=== PATIENT | male | born 1960 | race Caucasian/White ===

== ENCOUNTER 2017-09-19 14:05 | Inpatient (IN) | payer OTHER ==
[2017-09-19 15:28] VITALS: BMI 22.3
--- NOTE | 2017-09-19 17:00 | HP ---
CIWA Score - CIWA Score Nausea/Vomitin-Mild Nausea/No Vomiting Muscle Tremors: 4-Moderate,w/Arms Extend Anxiety: 4-Mod. Anxious/Guarded Agitation: 3 Paroxysmal Sweats: 1-Minimal Palms Moist Orientation: 1-Uncertain about Date Tacttile Disturbances: 0-None Auditory Disturbances: 0-None Visual Disturbances: 0-None Headache: 0-None Present CIWA-Ar Total Score: 14 Admission ROS BHS - HPI Chief Complaint: withdrawal sx Allergies/Adverse Reactions: Allergies Allergy/AdvReac Type Severity Reaction Status Date / Time No Known Allergies Allergy Verified 09/19/17 16:44 History of Present Illness: 57 years old male with long history of alcohol nicotine dependence has hiv and dry skin is admitted to detox Exam Limitations: No Limitations - Ebola screening Have you traveled outside of the country in the last 21 days: No (N) Have you had contact with anyone from an Ebola affected area: No Have you been sick,other than usual withdrawal symptoms: No Do you have a fever: No - Review of Systems Constitutional: Loss of Appetite, Unintentional Wgt. Loss EENT: reports: No Symptoms Reported Respiratory: reports: No Symptoms reported Cardiac: reports: Irregular Heart Rate GI: reports: Nausea, Poor Appetite, Poor Fluid Intake, Abdominal cramping : reports: No Symptoms Reported Musculoskeletal: reports: Back Pain (since 2001) Integumentary: reports: No Symptoms Reported Neuro: reports: Tremors Endocrine: reports: No Symptoms Reported Hematology: reports: No Symptoms Reported Psychiatric: reports: Judgement Intact, Mood/Affect Appropiate Other Systems: Reviewed and Negative Patient History - Patient Medical History Hx Anemia: No Hx Asthma: No Hx Chronic Obstructive Pulmonary Disease (COPD): No Hx Cancer: No Hx Cardiac Disorders: No Hx Congestive Heart Failure: No Hx Hypertension: No Hx Hypercholesterolemia: No Hx Pacemaker: No HX Cerebrovascular Accident: No Hx Seizures: No Hx Dementia: No Hx Diabetes: No Hx Gastrointestinal Disorders: No Hx Liver Disease: No Hx Genitourinary Disorders: No Hx Sexually Transmitted Disorders: No Hx Renal Disease (ESRD): No Hx Thyroid Disease: No Hx Human Immunodeficiency Virus (HIV): Yes (2002 [id number], truvada, norvir , reyataz) Hx Hepatitis C: No Hx Depression: No Hx Suicide Attempt: No Hx Bipolar Disorder: No Hx Schizophrenia: No - Patient Surgical History Past Surgical History: No Hx Neurologic Surgery: No Hx Cataract Extraction: No Hx Cardiac Surgery: No Hx Lung Surgery: No Hx Breast Surgery: No Hx Breast Biopsy: No Hx Abdominal Surgery: No Hx Appendectomy: No Hx Cholecystectomy: No Hx Genitourinary Surgery: No Hx Orthopedic Surgery: No - PPD History Previous Implant?: Yes Documented Results: Negative w/o proof Implanted On Prior [facility] Admission?: Yes Date: 12/01/15 Results: 0 mm PPD to be Administered?: Yes - Smoking Cessation Smoking history: Current every day smoker Have you smoked in the past 12 months: Yes Aproximately how many cigarettes per day: 20 Cigars Per Day: 0 Hx Chewing Tobacco Use: No Initiated information on smoking cessation: Yes 'Breaking Loose' booklet given: 09/19/17 - Substance & Tx. History Hx Alcohol Use: Yes Hx Substance Use: Yes Substance Use Type: Alcohol, Marijuana Hx Substance Use Treatment: Yes (2015 [facility]) - Substances Abused Alcohol Route: Oral Frequency: Daily Amount used: 3 pints vodka Age of first use: 23 Date of Last Use: 09/18/17 Marijuana/Hashish Route: Smoking Frequency: 1-3 times last 30 days Amount used: 1 joint Age of first use: 23 Date of Last Use: 09/05/17 Family Disease History - Family Disease History Family Disease History: Heart Disease: Mother (), CA: Father (ALCOHOL, ), Respiratory: Father, Other: Father, Mother Admission Physical Exam S - Vital Signs Vital Signs: Vital Signs - 24 hr 09/19/17 15:25 Temperature 97.8 F Pulse Rate 50 L Respiratory 18 Rate Blood Pressure 142/80 - Physical General Appearance: Yes: Appropriately Dressed, Mild Distress, Thin, Tremorous, Irritable, Sweating, Anxious HEENTM: Yes: Hearing grossly Normal, Normal ENT Inspection, Normocephalic, Normal Voice Respiratory: Yes: Chest Non-Tender, Lungs Clear, Normal Breath Sounds, No Respiratory Distress, No Accessory Muscle Use Neck: Yes: Supple, Trachea in good position Breast: Yes: Breasts Symetrical Cardiology: Yes: S1, S2, Bradycardia, Irregularly Irregular Abdominal: Yes: Normal Bowel Sounds, Non Tender, Soft Genitourinary: Yes: Within Normal Limits Back: Yes: Normal Inspection Musculoskeletal: Yes: full range of Motion, Gait Steady, Back pain Extremities: Yes: Normal Inspection, Normal Range of Motion, Non-Tender, Tremors Neurological: Yes: Alert, Motor Strength 5/5, Normal Mood/Affect, Normal Response Integumentary: Yes: Warm Lymphatic: Yes: Within Normal Limits - Diagnostic (1) Dry skin Current Visit: Yes Status: Chronic (2) Alcohol dependence with uncomplicated withdrawal Current Visit: Yes Status: Acute (3) Low back pain Current Visit: Yes Status: Chronic Qualifiers: Chronicity: unspecified Back pain laterality: unspecified Sciatica presence: without sciatica Qualified Code(s): M54.5 - Low back pain (4) Nicotine dependence Current Visit: Yes Status: Acute Qualifiers: Nicotine product type: cigarettes Substance use status: in withdrawal Qualified Code(s): F17.213 - Nicotine dependence, cigarettes, with withdrawal (5) Weight loss Current Visit: Yes Status: Acute (6) Human immunodeficiency virus infection Current Visit: Yes Status: Chronic Cleared for Admission [facility] - Detox or Rehab [facility] Level of Care: Medically Managed Detox Regimen/Protocol: Librium [facility] Breath Alcohol Content Breath Alcohol Content: 0 Urine Drug Screen - Results Drug Screen Negative: No Urine Drug Screen Results: THC-Marijuana
[2017-09-19] MEDS ORDERED: P-EPHED 60MG/TRIPROLIDI 2.5MG TABLET PO PRN (17:03)
[2017-09-19] MEDS ORDERED: LOPERAMIDE HCL 2 MG CAPSULE PO PRN (17:03)
[2017-09-19] MEDS ORDERED: ACETAMINOPHEN 325 MG TABLET (FP) PO PRN (17:03)
[2017-09-19] MEDS ORDERED: MAG HYDROX/AL HYDROX/SIMETH 30 ML UNIT-DOSE CUP PO PRN (17:03)
[2017-09-19] MEDS ORDERED: guaiFENesin/D-METHORPHAN HB 10 ML UNIT-DOSE CUPS PO PRN (17:03)
[2017-09-19] MEDS ORDERED: chlordiazePOXIDE HCL 25 MG CAPSULE PO PRN (17:03)
[2017-09-19] MEDS ORDERED: MAGNESIUM CITRATE 300 ML BOTTLE PO PRN (17:03)
[2017-09-19] MEDS ORDERED: IBUPROFEN 400 MG TABLET (FP) PO PRN (17:03)
[2017-09-19] MEDS ORDERED: MENTHOL/PHENOL 1 EACH UD MM PRN (17:03)
[2017-09-19] MEDS ORDERED: NICOTINE POLACRILEX 4 MG GUM BUC PRN (17:03)
[2017-09-19] MEDS ORDERED: MAGNESIUM HYDROX 2400MG/30ML ORAL SUSPENSION 30 ML CUP PO PRN (17:03)
[2017-09-19] MEDS: THIAMINE HCL 100 MG TABLET (FP) PO SCH (22:12)
[2017-09-19] MEDS: [UNRECOGNIZED DRUG - OTHER] PO SCH (22:12)
[2017-09-19] MEDS: chlordiazePOXIDE HCL 25 MG CAPSULE PO SCH (22:12)
[2017-09-19] MEDS: MINERAL OIL/PETROLAT/WATER TOPICAL CREAM 113 GM JAR TP SCH (22:13)
[2017-09-19 23:08] LABS: URINE APPEARANCE CLEAR; URINE BILIRUBIN NEGATIVE (NEGATIVE); URINE BLOOD NEGATIVE (NEGATIVE); URINE COLOR YELLOW; URINE GLUCOSE (UA) NEGATIVE (NEGATIVE); URINE KETONE NEGATIVE (NEGATIVE); URINE NITRITE NEGATIVE (NEGATIVE); URINE PROTEIN NEGATIVE (NEGATIVE); URINE UROBILINOGEN NEGATIVE mg/dL (0.2-1.0)
[2017-09-20] MEDS: chlordiazePOXIDE HCL 25 MG CAPSULE PO SCH ×4 (05:40→22:04)
[2017-09-20] MEDS: NICOTINE 21 MG/24 HOURS TOPICAL PATCH TD SCH (10:08)
[2017-09-20] MEDS: PRENATAL VITAMINS W/ FOLIC ACID TABLET (FP) PO SCH (10:08)
[2017-09-20 10:17] LABS: MCH 32.9 pg (25.7-33.7); MEAN CELL VOLUME 99.6 fl (80-96); MEAN PLT VOLUME 8.9 fl (7.5-11.1); PLATELET COUNT 189 K/MM3 (134-434); RDW 12.7 % (11.9-15.9); WHITE BLOOD COUNT 3.2 K/mm3 (4.0-10.0)
[2017-09-20 11:15] LABS: ALBUMIN 3.5 g/dl (3.4-5.0); ANION GAP 5 (8-16); CALCIUM 8.4 mg/dL (8.5-10.1); CO2 30 mmol/L (21-32); GLUCOSE,RANDOM 112 mg/dL (74-106); SGOT/AST 17 U/L (15-37); SGPT/ALT 30 U/L (12-78)
[2017-09-20 11:17] LABS: ALK PHOS 46 U/L (45-117); BILIRUBIN,TOTAL 0.3 mg/dL (0.2-1.0); CREATININE 0.9 mg/dL (0.7-1.3); TOT PROT 6.6 g/dl (6.4-8.2)
[2017-09-20 14:37] LABS: URINE LEUK ESTERASE Negative (NEGATIVE)
--- NOTE | 2017-09-20 16:07 | PN ---
[facility] CIWA - CIWA Score Nausea/Vomitin-No Nausea/No Vomiting Muscle Tremors: 3 Anxiety: 4-Mod. Anxious/Guarded Agitation: 2 Paroxysmal Sweats: 3 Orientation: 0-Oriented Tacttile Disturbances: 0-None Auditory Disturbances: 1-Very Mild Visual Disturbances: 2-Mild Sensitivity Headache: 0-None Present CIWA-Ar Total Score: 15 S Progress Note (SOAP) Subjective: Anxious, Fatigue, Tremors, Sweating. Objective: PT. A & O X 3, OBSERVED AMBULATING ON UNIT. NO ACUTE DISTRESS. 09/20/17 16:05 Vital Signs Temperature 98.2 F 09/20/17 13:09 Pulse Rate 76 09/20/17 13:09 Respiratory Rate 18 09/20/17 13:09 Blood Pressure 113/66 09/20/17 13:09 O2 Sat by Pulse Oximetry (%) Laboratory Tests 09/19/17 09/20/17 09/20/17 22:50 07:40 07:40 WBC 3.2 L RBC 3.89 L Hgb 12.8 Hct 38.7 MCV 99.6 H MCH 32.9 MCHC 33.0 RDW 12.7 Plt Count 189 MPV 8.9 Sodium 141 Potassium 4.6 Chloride 106 Carbon Dioxide 30 Anion Gap 5 L BUN 12 Creatinine 0.9 Creat Clearance w eGFR > 60 Random Glucose 112 H Calcium 8.4 L Total Bilirubin 0.3 D AST 17 D ALT 30 Alkaline Phosphatase 46 D Total Protein 6.6 Albumin 3.5 Urine Color Yellow Urine Appearance Clear Urine pH 6.0 Ur Specific [place] 1.024 Urine Protein Negative Urine Glucose (UA) Negative Urine Ketones Negative Urine Blood Negative Urine Nitrite Negative Urine Bilirubin Negative Urine Urobilinogen Negative Ur Leukocyte Esterase Negative RPR Titer 09/20/17 07:40 WBC RBC Hgb Hct MCV MCH MCHC RDW Plt Count MPV Sodium Potassium Chloride Carbon Dioxide Anion Gap BUN Creatinine Creat Clearance w eGFR Random Glucose Calcium Total Bilirubin AST ALT Alkaline Phosphatase Total Protein Albumin Urine Color Urine Appearance Urine pH Ur Specific [place] Urine Protein Urine Glucose (UA) Urine Ketones Urine Blood Urine Nitrite Urine Bilirubin Urine Urobilinogen Ur Leukocyte Esterase RPR Titer Nonreactive LABS NOTED. PATIENT HAS HAD LOW WBC COUNT VALUES ON SEVERAL PREVIOUS ADMISSION. 09/20/17 16:06 Assessment: 09/20/17 16:05 WITHDRAWAL SYMPTOMS. LEUKOPENIA. 09/20/17 16:06 Plan: CONTINUE DETOX.
--- NOTE | 2017-09-20 16:32 | EKG ---
Test Reason : Blood Pressure : / mmHG Vent. Rate : 071 BPM Atrial Rate : 062 BPM P-R Int : 132 ms QRS Dur : 080 ms QT Int : 388 ms P-R-T Axes : 059 076 064 degrees QTc Int : 421 ms SINUS RHYTHM WITH PREMATURE SUPRAVENTRICULAR COMPLEXES VOLTAGE CRITERIA FOR LEFT VENTRICULAR HYPERTROPHY ATRIAL ABNORMALITY ABNORMAL ECG NO PREVIOUS ECGS AVAILABLE REPEAT EKG IF CLINICALLY INDICATED Confirmed by TIESHA NAILS MD ([id number] on 09/20/2017 4:31:30 PM Referred By: Confirmed By:TIESHA NAILS MD
[2017-09-20] MEDS: THIAMINE HCL 100 MG TABLET (FP) PO SCH (22:03)
[2017-09-20] MEDS: [UNRECOGNIZED DRUG - OTHER] PO SCH (22:04)
[2017-09-20] MEDS: MINERAL OIL/PETROLAT/WATER TOPICAL CREAM 113 GM JAR TP SCH (22:05)
[2017-09-21] MEDS: chlordiazePOXIDE HCL 25 MG CAPSULE PO SCH ×3 (05:47→16:55)
[2017-09-21] MEDS: PRENATAL VITAMINS W/ FOLIC ACID TABLET (FP) PO SCH (10:03)
[2017-09-21] MEDS: NICOTINE 21 MG/24 HOURS TOPICAL PATCH TD SCH (10:03)
--- NOTE | 2017-09-21 13:35 | PN ---
S CIWA - CIWA Score Nausea/Vomitin Muscle Tremors: 3 Anxiety: 3 Agitation: 2 Paroxysmal Sweats: 3 Orientation: 0-Oriented Tacttile Disturbances: 1-Very Mild Itch/Numbness Auditory Disturbances: 0-None Visual Disturbances: 0-None Headache: 1-Very Mild CIWA-Ar Total Score: 16 [facility] Progress Note (SOAP) Subjective: Anxious, interrupted sleep, sweating Objective: 09/21/17 13:43 Last Vital Signs Temp Pulse Resp BP Pulse Ox 98.5 F 79 18 107/71 09/21/17 13:42 09/21/17 13:42 09/21/17 13:42 09/21/17 13:42 Laboratory Tests 09/19/17 09/20/17 09/20/17 22:50 07:40 07:40 WBC 3.2 L RBC 3.89 L Hgb 12.8 Hct 38.7 MCV 99.6 H MCH 32.9 MCHC 33.0 RDW 12.7 Plt Count 189 MPV 8.9 Sodium 141 Potassium 4.6 Chloride 106 Carbon Dioxide 30 Anion Gap 5 L BUN 12 Creatinine 0.9 Creat Clearance w eGFR > 60 Random Glucose 112 H Calcium 8.4 L Total Bilirubin 0.3 D AST 17 D ALT 30 Alkaline Phosphatase 46 D Total Protein 6.6 Albumin 3.5 Urine Color Yellow Urine Appearance Clear Urine pH 6.0 Ur Specific [place] 1.024 Urine Protein Negative Urine Glucose (UA) Negative Urine Ketones Negative Urine Blood Negative Urine Nitrite Negative Urine Bilirubin Negative Urine Urobilinogen Negative Ur Leukocyte Esterase Negative RPR Titer 09/20/17 07:40 WBC RBC Hgb Hct MCV MCH MCHC RDW Plt Count MPV Sodium Potassium Chloride Carbon Dioxide Anion Gap BUN Creatinine Creat Clearance w eGFR Random Glucose Calcium Total Bilirubin AST ALT Alkaline Phosphatase Total Protein Albumin Urine Color Urine Appearance Urine pH Ur Specific [place] Urine Protein Urine Glucose (UA) Urine Ketones Urine Blood Urine Nitrite Urine Bilirubin Urine Urobilinogen Ur Leukocyte Esterase RPR Titer Nonreactive Labs noted Assessment: 09/21/17 13:44 Withdrawal symptoms Plan: Continue detox
[2017-09-21] MEDS: chlordiazePOXIDE 5 MG CAPSULE PO SCH (22:03)
[2017-09-21] MEDS: THIAMINE HCL 100 MG TABLET (FP) PO SCH (22:03)
[2017-09-21] MEDS: MINERAL OIL/PETROLAT/WATER TOPICAL CREAM 113 GM JAR TP SCH (22:03)
[2017-09-21] MEDS: [UNRECOGNIZED DRUG - OTHER] PO SCH (22:04)
[2017-09-22] MEDS: chlordiazePOXIDE 5 MG CAPSULE PO SCH ×3 (05:18→17:02)
[2017-09-22] MEDS: NICOTINE 21 MG/24 HOURS TOPICAL PATCH TD SCH (10:01)
[2017-09-22] MEDS: PRENATAL VITAMINS W/ FOLIC ACID TABLET (FP) PO SCH (10:01)
--- NOTE | 2017-09-22 10:50 | PN ---
[facility] Progress Note (SOAP) Subjective: ANXIETY,SWEATS,INTERMITTENT SLEEP. Objective: 09/22/17 10:49 Vital Signs Temperature 97.5 F L 09/22/17 09:08 Pulse Rate 77 09/22/17 09:08 Respiratory Rate 18 09/22/17 09:08 Blood Pressure 127/80 09/22/17 09:08 O2 Sat by Pulse Oximetry (%) Laboratory Last Values WBC 3.2 K/mm3 (4.0-10.0) L 09/20/17 07:40 RBC 3.89 M/mm3 (4.00-5.60) L 09/20/17 07:40 Hgb 12.8 GM/dL (11.7-16.9) 09/20/17 07:40 Hct 38.7 % (35.4-49) 09/20/17 07:40 MCV 99.6 fl (80-96) H 09/20/17 07:40 MCH 32.9 pg (25.7-33.7) 09/20/17 07:40 MCHC 33.0 g/dl (32.0-35.9) 09/20/17 07:40 RDW 12.7 % (11.9-15.9) 09/20/17 07:40 Plt Count 189 K/MM3 (134-434) 09/20/17 07:40 MPV 8.9 fl (7.5-11.1) 09/20/17 07:40 Sodium 141 mmol/L (136-145) 09/20/17 07:40 Potassium 4.6 mmol/L (3.5-5.1) 09/20/17 07:40 Chloride 106 mmol/L (98-107) 09/20/17 07:40 Carbon Dioxide 30 mmol/L (21-32) 09/20/17 07:40 Anion Gap 5 (8-16) L 09/20/17 07:40 BUN 12 mg/dL (7-18) 09/20/17 07:40 Creatinine 0.9 mg/dL (0.7-1.3) 09/20/17 07:40 Creat Clearance w eGFR > 60 (>60) 09/20/17 07:40 Random Glucose 112 mg/dL (74-106) H 09/20/17 07:40 Calcium 8.4 mg/dL (8.5-10.1) L 09/20/17 07:40 Total Bilirubin 0.3 mg/dL (0.2-1.0) D 09/20/17 07:40 AST 17 U/L (15-37) D 09/20/17 07:40 ALT 30 U/L (12-78) 09/20/17 07:40 Alkaline Phosphatase 46 U/L (45-117) D 09/20/17 07:40 Total Protein 6.6 g/dl (6.4-8.2) 09/20/17 07:40 Albumin 3.5 g/dl (3.4-5.0) 09/20/17 07:40 Urine Color Yellow 09/19/17 22:50 Urine Appearance Clear 09/19/17 22:50 Urine pH 6.0 (5.0-8.0) 09/19/17 22:50 Ur Specific [place] 1.024 (1.001-1.035) 09/19/17 22:50 Urine Protein Negative (NEGATIVE) 09/19/17 22:50 Urine Glucose (UA) Negative (NEGATIVE) 09/19/17 22:50 Urine Ketones Negative (NEGATIVE) 09/19/17 22:50 Urine Blood Negative (NEGATIVE) 09/19/17 22:50 Urine Nitrite Negative (NEGATIVE) 09/19/17 22:50 Urine Bilirubin Negative (NEGATIVE) 09/19/17 22:50 Urine Urobilinogen Negative mg/dL (0.2-1.0) 09/19/17 22:50 Ur Leukocyte Esterase Negative (NEGATIVE) 09/19/17 22:50 RPR Titer Nonreactive (NONREACTIVE) 09/20/17 07:40 Assessment: 09/22/17 10:49 WITHDRAWAL SX Plan: CONTINUE DETOX
[2017-09-22] MEDS: [UNRECOGNIZED DRUG - OTHER] PO SCH (22:03)
[2017-09-22] MEDS: THIAMINE HCL 100 MG TABLET (FP) PO SCH (22:04)
[2017-09-22] MEDS: MINERAL OIL/PETROLAT/WATER TOPICAL CREAM 113 GM JAR TP SCH (22:04)
[2017-09-22] MEDS: chlordiazePOXIDE HCL 10 MG CAPSULE PO SCH (22:04)
[2017-09-23] MEDS: chlordiazePOXIDE HCL 10 MG CAPSULE PO SCH ×2 (05:43→10:19)
[2017-09-23 09:15] VITALS: BP 118/75; PULSE 86; TEMP 98.4
[2017-09-23] MEDS: PRENATAL VITAMINS W/ FOLIC ACID TABLET (FP) PO SCH (10:19)
[2017-09-23] MEDS: NICOTINE 21 MG/24 HOURS TOPICAL PATCH TD SCH (10:19)
--- NOTE | 2017-09-23 11:56 | DS ---
[facility] Detox Discharge Summary Admission Date: 09/19/17 Discharge Date: 09/23/17 - History Present History: Alcohol Dependence Additional Comments: PATIENT GOING HOME AT THIS TIME TO ATTEND TO PERSONAL ISSUES. PATIENT ADVISED TO CONSIDER LOCAL 12-STEP / AA OUTPATIENT SUPPORT GROUP MEETINGS FOR AFTERCARE. PATIENT WAS DISCHARGED FROM DETOX UNIT IN STABLE MEDICAL CONDITION. Pertinent Past History: Low Back Pain, HIV, Nicotine Dependence. - Physical Exam Results Vital Signs: Vital Signs Temperature 98.4 F 09/23/17 09:15 Pulse Rate 86 09/23/17 09:15 Respiratory Rate 18 09/23/17 09:15 Blood Pressure 118/75 09/23/17 09:15 O2 Sat by Pulse Oximetry (%) Pertinent Admission Physical Exam Findings: WITHDRAWAL SYMPTOMS. Laboratory Tests 09/19/17 09/20/17 09/20/17 22:50 07:40 07:40 WBC 3.2 L RBC 3.89 L Hgb 12.8 Hct 38.7 MCV 99.6 H MCH 32.9 MCHC 33.0 RDW 12.7 Plt Count 189 MPV 8.9 Sodium 141 Potassium 4.6 Chloride 106 Carbon Dioxide 30 Anion Gap 5 L BUN 12 Creatinine 0.9 Creat Clearance w eGFR > 60 Random Glucose 112 H Calcium 8.4 L Total Bilirubin 0.3 D AST 17 D ALT 30 Alkaline Phosphatase 46 D Total Protein 6.6 Albumin 3.5 Urine Color Yellow Urine Appearance Clear Urine pH 6.0 Ur Specific [place] 1.024 Urine Protein Negative Urine Glucose (UA) Negative Urine Ketones Negative Urine Blood Negative Urine Nitrite Negative Urine Bilirubin Negative Urine Urobilinogen Negative Ur Leukocyte Esterase Negative RPR Titer 09/20/17 07:40 WBC RBC Hgb Hct MCV MCH MCHC RDW Plt Count MPV Sodium Potassium Chloride Carbon Dioxide Anion Gap BUN Creatinine Creat Clearance w eGFR Random Glucose Calcium Total Bilirubin AST ALT Alkaline Phosphatase Total Protein Albumin Urine Color Urine Appearance Urine pH Ur Specific [place] Urine Protein Urine Glucose (UA) Urine Ketones Urine Blood Urine Nitrite Urine Bilirubin Urine Urobilinogen Ur Leukocyte Esterase RPR Titer Nonreactive LABS NOTED. - Treatment Hospital Course: Detox Protocol Followed, Detoxed Safely, Responded well, Discharged Condition Good Patient has Accepted a Rehab Referral to: NO. PT ADVISED TO CONSIDER LOCAL 12- STEP/AA SUPPORT GROUP MEETINGS. - Medication Discharge Medications: Ambulatory Orders Elviteg/Cob/Emtri/Tenof Alafen [Genvoya (Non-Formulary)] 1 each PO DAILY - Diagnosis (1) Alcohol dependence with uncomplicated withdrawal Status: Acute (2) Nicotine dependence Status: Chronic Qualifiers: Nicotine product type: cigarettes Substance use status: in withdrawal Qualified Code(s): F17.213 - Nicotine dependence, cigarettes, with withdrawal (3) Weight loss Status: Acute (4) Dry skin Status: Chronic (5) Human immunodeficiency virus infection Status: Chronic (6) Low back pain Status: Chronic Qualifiers: Chronicity: unspecified Back pain laterality: unspecified Sciatica presence: without sciatica Qualified Code(s): M54.5 - Low back pain - AMA Did Patient Leave Against Medical Advice: No
== END 2017-09-23 10:20 | disposition home or self-care (01) | DRG 775 ==
LOC: YASAS 14:05 → Y3N 17:25
PROVIDERS: ADMIT Internal Medicine; ATTEND Internal Medicine
PROC: HZ2ZZZZ Detoxification Services for Substance Abuse Treatment (ICD-10-PCS; principal; 2017-09-19)
DX: F10.230 Alcohol dependence with withdrawal, uncomplicated (principal); F17.213 Nicotine dependence, cigarettes, with withdrawal; M54.5 Low back pain; L85.3 Xerosis cutis; Z21 Asymptomatic human immunodeficiency virus [HIV] infection status; R63.4 Abnormal weight loss; Z68.22 Body mass index [BMI] 22.0-22.9, adult; Z59.0 Homelessness
CPT/HCPCS: 36415; 80053; 81003; 85027; 86593; 93005; 93010

== ENCOUNTER 2017-10-28 12:00 | Inpatient (IN) | payer OTHER ==
[2017-10-28 12:49] VITALS: BMI 23.6
--- NOTE | 2017-10-28 16:38 | HP ---
CIWA Score - CIWA Score Nausea/Vomitin-No Nausea/No Vomiting Muscle Tremors: 4-Moderate,w/Arms Extend Anxiety: 4-Mod. Anxious/Guarded Agitation: 4-Moderately Restless Paroxysmal Sweats: 1-Minimal Palms Moist Orientation: 0-Oriented Tacttile Disturbances: 2-Mild Itch/Numbness/Burn Auditory Disturbances: 0-None Visual Disturbances: 0-None Headache: 0-None Present CIWA-Ar Total Score: 15 Admission ROS S - HPI Chief Complaint: ALCOHOL WITHDRAWAL SX Allergies/Adverse Reactions: Allergies Allergy/AdvReac Type Severity Reaction Status Date / Time No Known Allergies Allergy Verified 10/28/17 15:41 History of Present Illness: 57 Y/O H/MALE WITH A HX OF ALCOHOL AND MARIJUANA DEPENDENCE SEEKING DETOX [place]. Exam Limitations: No Limitations - Ebola screening Have you traveled outside of the country in the last 21 days: No Have you had contact with anyone from an Ebola affected area: No Have you been sick,other than usual withdrawal symptoms: No - Review of Systems Constitutional: Chills, Night Sweats EENT: reports: Dental Problems (MISSING TEETH) Respiratory: reports: No Symptoms reported Cardiac: reports: Lightheadedness GI: reports: Diarrhea, Nausea, Poor Fluid Intake, Vomiting : reports: No Symptoms Reported Musculoskeletal: reports: Joint Pain Integumentary: reports: No Symptoms Reported Neuro: reports: Headache, Tremors, Unsteady Gait, Dizziness Endocrine: reports: No Symptoms Reported Hematology: reports: No Symptoms Reported Psychiatric: reports: Orientated x3, Anxious Other Systems: Reviewed and Negative Patient History - Patient Medical History Hx Anemia: No Hx Asthma: No Hx Chronic Obstructive Pulmonary Disease (COPD): No Hx Cancer: No Hx Cardiac Disorders: No Hx Congestive Heart Failure: No Hx Hypertension: No Hx Hypercholesterolemia: No Hx Pacemaker: No HX Cerebrovascular Accident: No Hx Seizures: No Hx Dementia: No Hx Diabetes: No Hx Gastrointestinal Disorders: No Hx Liver Disease: No Hx Genitourinary Disorders: No Hx Sexually Transmitted Disorders: No Hx Renal Disease (ESRD): No Hx Thyroid Disease: No Hx Human Immunodeficiency Virus (HIV): Yes (SINCE 2000; ON GENVOYA(PT BROUGHT OWN RX)) Hx Hepatitis C: No Hx Depression: No Hx Suicide Attempt: No (DENIES ) Hx Bipolar Disorder: No Hx Schizophrenia: No - Patient Surgical History Past Surgical History: No Hx Neurologic Surgery: No Hx Cataract Extraction: No Hx Cardiac Surgery: No Hx Lung Surgery: No Hx Breast Surgery: No Hx Breast Biopsy: No Hx Abdominal Surgery: No Hx Appendectomy: No Hx Cholecystectomy: No Hx Genitourinary Surgery: No Hx Section: No Hx Orthopedic Surgery: No Anesthesia Reaction: No - PPD History Previous Implant?: Yes Documented Results: Negative w/proof Implanted On Prior [facility] Admission?: Yes Date: 09/21/17 Results: 0 mm - Reproductive History Patient is a Female of Child Bearing Age (11 -55 yrs old): No (MALE) - Smoking Cessation Smoking history: Current every day smoker Have you smoked in the past 12 months: Yes Aproximately how many cigarettes per day: 5 Cigars Per Day: 0 Hx Chewing Tobacco Use: No Initiated information on smoking cessation: Yes 'Breaking Loose' booklet given: 10/28/17 - Substance & Tx. History Hx Alcohol Use: Yes (BEER/VODKA) Hx Substance Use: Yes (MARIJUANA) Substance Use Type: Alcohol, Marijuana - Substances Abused Alcohol-beer/vodka Route: Oral Frequency: Daily Amount used: 2-6 pks./2-3 pts. Age of first use: 23 Date of Last Use: 10/28/17 Marijuana Route: Smoking Frequency: Daily Amount used: $10 Age of first use: 23 Date of Last Use: 10/27/17 Family Disease History - Family Disease History Family Disease History: Heart Disease: Mother (), CA: Father (ALCOHOL, ), Respiratory: Father, Other: Father, Mother Admission Physical Exam S - Vital Signs Vital Signs: Vital Signs - 24 hr 10/28/17 12:47 Temperature 97.1 F L Pulse Rate 100 H Respiratory 18 Rate Blood Pressure 108/68 - Physical General Appearance: Yes: Moderate Distress, Irritable, Anxious HEENTM: Yes: EOMI, Normocephalic, KANE, Pharynx Normal Respiratory: Yes: Chest Non-Tender, Lungs Clear, Normal Breath Sounds, No Respiratory Distress Neck: Yes: No masses,lesions,Nodules, Supple, Trachea in good position Breast: Yes: Breast Exam Deferred Cardiology: Yes: Regular Rhythm, Regular Rate, S1, S2 Abdominal: Yes: Normal Bowel Sounds, Non Tender, Flat Genitourinary: Yes: Other (N/C) Back: Yes: Within Normal Limits Musculoskeletal: Yes: full range of Motion, Gait Steady Extremities: Yes: Normal Range of Motion, Non-Tender Neurological: Yes: movie projectionist II-XII NML intact, Fully Oriented, Alert, Motor Strength 5/5 Integumentary: Yes: Dry, Warm Lymphatic: Yes: Within Normal Limits - Diagnostic (1) Alcohol dependence with uncomplicated withdrawal Current Visit: Yes Status: Acute (2) Human immunodeficiency virus infection Current Visit: Yes Status: Chronic (3) Nicotine dependence Current Visit: Yes Status: Acute Qualifiers: Nicotine product type: cigarettes Substance use status: in withdrawal Qualified Code(s): F17.213 - Nicotine dependence, cigarettes, with withdrawal (4) Cannabis dependence, uncomplicated Current Visit: Yes Status: Acute Cleared for Admission [facility] - Detox or Rehab [facility] Level of Care: Medically Managed Detox Regimen/Protocol: Librium [facility] Breath Alcohol Content Breath Alcohol Content: 0.128 Urine Drug Screen - Results Drug Screen Negative: No Urine Drug Screen Results: THC-Marijuana
[2017-10-28] MEDS ORDERED: MAGNESIUM CITRATE 300 ML BOTTLE PO PRN (16:51)
[2017-10-28] MEDS ORDERED: IBUPROFEN 400 MG TABLET (FP) PO PRN (16:51)
[2017-10-28] MEDS ORDERED: chlordiazePOXIDE HCL 25 MG CAPSULE PO PRN (16:51)
[2017-10-28] MEDS ORDERED: MAGNESIUM HYDROX 2400MG/30ML ORAL SUSPENSION 30 ML CUP PO PRN (16:51)
[2017-10-28] MEDS ORDERED: ACETAMINOPHEN 325 MG TABLET (FP) PO PRN (16:51)
[2017-10-28] MEDS ORDERED: LOPERAMIDE HCL 2 MG CAPSULE PO PRN (16:51)
[2017-10-28] MEDS ORDERED: guaiFENesin/D-METHORPHAN HB 10 ML UNIT-DOSE CUPS PO PRN (16:51)
[2017-10-28] MEDS ORDERED: NICOTINE POLACRILEX 2 MG GUM BC PRN (16:51)
[2017-10-28] MEDS ORDERED: MENTHOL/PHENOL 1 EACH UD MM PRN (16:51)
[2017-10-28] MEDS ORDERED: MAG HYDROX/AL HYDROX/SIMETH 30 ML UNIT-DOSE CUP PO PRN (16:51)
[2017-10-28] MEDS ORDERED: P-EPHED 60MG/TRIPROLIDI 2.5MG TABLET PO PRN (16:51)
[2017-10-28] MEDS ORDERED: chlordiazePOXIDE HCL 25 MG CAPSULE PO ONE (17:15)
[2017-10-28] MEDS: NICOTINE 14 MG/24 HOURS TOPICAL PATCH TD SCH (18:25)
--- NOTE | 2017-10-28 20:53 | EKG ---
Test Reason : Blood Pressure : / mmHG Vent. Rate : 081 BPM Atrial Rate : 081 BPM P-R Int : 136 ms QRS Dur : 088 ms QT Int : 366 ms P-R-T Axes : 068 074 058 degrees QTc Int : 425 ms SINUS RHYTHM WITH PREMATURE SUPRAVENTRICULAR COMPLEXES IN A PATTERN OF BIGEMINY MODERATE VOLTAGE CRITERIA FOR LVH, MAY BE NORMAL VARIANT BORDERLINE ECG WHEN COMPARED WITH ECG OF 19-SEP-2017 19:48, NO SIGNIFICANT CHANGE WAS FOUND Confirmed by MD DONNA, SAMMI ([id number]) on 10/28/2017 8:52:35 PM Referred By: Confirmed By:SAMMI THOMPSON MD
[2017-10-28] MEDS: chlordiazePOXIDE HCL 25 MG CAPSULE PO SCH (22:15)
[2017-10-28] MEDS: THIAMINE HCL 100 MG TABLET (FP) PO SCH (22:15)
[2017-10-29 01:30] LABS: URINE APPEARANCE CLEAR; URINE BILIRUBIN NEGATIVE (NEGATIVE); URINE BLOOD NEGATIVE (NEGATIVE); URINE COLOR YELLOW; URINE GLUCOSE (UA) NEGATIVE (NEGATIVE); URINE KETONE TRACE (NEGATIVE); URINE LEUK ESTERASE NEGATIVE (NEGATIVE); URINE NITRITE NEGATIVE (NEGATIVE); URINE PROTEIN NEGATIVE (NEGATIVE); URINE UROBILINOGEN NEGATIVE mg/dL (0.2-1.0)
[2017-10-29] MEDS: chlordiazePOXIDE HCL 25 MG CAPSULE PO SCH ×4 (05:48→22:37)
[2017-10-29 08:55] LABS: URINE LEUK ESTERASE Negative (NEGATIVE)
[2017-10-29 10:11] LABS: MCH 33.7 pg (25.7-33.7); MCHC 32.8 g/dl (32.0-35.9); MEAN CELL VOLUME 102.8 fl (80-96); MEAN PLT VOLUME 8.7 fl (7.5-11.1); PLATELET COUNT 216 K/MM3 (134-434); RDW 13.4 % (11.9-15.9); WHITE BLOOD COUNT 3.3 K/mm3 (4.0-10.0)
[2017-10-29 10:29] LABS: ALBUMIN 3.6 g/dl (3.4-5.0); ALK PHOS 51 U/L (45-117); ANION GAP 4 (8-16); BILIRUBIN,TOTAL 1.2 mg/dL (0.2-1.0); CALCIUM 8.5 mg/dL (8.5-10.1); CO2 31 mmol/L (21-32); GLUCOSE,RANDOM 100 mg/dL (74-106); SGOT/AST 20 U/L (15-37); SGPT/ALT 31 U/L (12-78); TOT PROT 6.9 g/dl (6.4-8.2)
[2017-10-29] MEDS: NICOTINE 14 MG/24 HOURS TOPICAL PATCH TD SCH (10:53)
[2017-10-29] MEDS: PRENATAL VITAMINS W/ FOLIC ACID TABLET (FP) PO SCH (10:53)
[2017-10-29] MEDS: ELVITEG/COB/EMTRI/TENOF (GENVOYA) TABLET (NF) PO SCH (10:53)
--- NOTE | 2017-10-29 11:28 | PN ---
S CIWA - CIWA Score Nausea/Vomitin Muscle Tremors: 2 Anxiety: 2 Agitation: 2 Paroxysmal Sweats: 3 Orientation: 0-Oriented Tacttile Disturbances: 1-Very Mild Itch/Numbness Auditory Disturbances: 0-None Visual Disturbances: 0-None Headache: 0-None Present CIWA-Ar Total Score: 12 [facility] Progress Note (SOAP) Subjective: INTERRUPTED SLEEP, SWEATS Objective: 10/29/17 11:26 Vital Signs Temperature 99.3 F 10/29/17 11:07 Pulse Rate 83 10/29/17 11:07 Respiratory Rate 16 10/29/17 11:07 Blood Pressure 104/71 10/29/17 11:07 O2 Sat by Pulse Oximetry (%) Laboratory Tests 10/28/17 10/29/17 10/29/17 23:36 07:00 07:00 WBC 3.3 L RBC 3.88 L Hgb 13.1 Hct 39.9 MCV 102.8 H MCH 33.7 MCHC 32.8 RDW 13.4 Plt Count 216 MPV 8.7 Sodium 140 Potassium 4.1 Chloride 105 Carbon Dioxide 31 Anion Gap 4 L BUN 14 Creatinine 1.0 Creat Clearance w eGFR > 60 Random Glucose 100 Calcium 8.5 Total Bilirubin 1.2 H D AST 20 ALT 31 Alkaline Phosphatase 51 Total Protein 6.9 Albumin 3.6 Urine Color Yellow Urine Appearance Clear Urine pH 5.0 Ur Specific [place] 1.026 Urine Protein Negative Urine Glucose (UA) Negative Urine Ketones Trace H Urine Blood Negative Urine Nitrite Negative Urine Bilirubin Negative Urine Urobilinogen Negative Ur Leukocyte Esterase Negative PT AOX3 IN NAD LYING IN BED Assessment: 10/29/17 11:27 WITHDRAWAL SX'S Plan: CONT. DETOX INCREASE FLUIDS
[2017-10-29] MEDS: THIAMINE HCL 100 MG TABLET (FP) PO SCH (22:55)
[2017-10-30] MEDS: chlordiazePOXIDE HCL 25 MG CAPSULE PO SCH (05:28)
--- NOTE | 2017-10-30 09:10 | PN ---
[facility] CIWA - CIWA Score Nausea/Vomitin Muscle Tremors: 3 Anxiety: 3 Agitation: 3 Paroxysmal Sweats: 3 Orientation: 0-Oriented Tacttile Disturbances: 0-None Auditory Disturbances: 0-None Visual Disturbances: 0-None Headache: 0-None Present CIWA-Ar Total Score: 15 S Progress Note (SOAP) Subjective: nausea, sweats, interrupted sleep, anxiety would like to leave tormorrow becuse of court date and is requesting accelerated detox, no h/o seiuzrs or DTS Objective: 10/30/17 09:09 Vital Signs - 24 hr 10/29/17 10/29/17 10/29/17 11:07 13:12 16:54 Temperature 99.3 F 98.2 F 98.1 F Pulse Rate 83 83 83 Respiratory 16 16 18 Rate Blood Pressure 104/71 115/74 107/67 10/29/17 10/30/17 10/30/17 22:15 03:30 06:25 Temperature 97.7 F 97.3 F L Pulse Rate 72 69 Respiratory 18 18 18 Rate Blood Pressure 114/76 127/76 Laboratory Tests 10/28/17 10/29/17 10/29/17 23:36 07:00 07:00 WBC 3.3 L RBC 3.88 L Hgb 13.1 Hct 39.9 MCV 102.8 H MCH 33.7 MCHC 32.8 RDW 13.4 Plt Count 216 MPV 8.7 Sodium 140 Potassium 4.1 Chloride 105 Carbon Dioxide 31 Anion Gap 4 L BUN 14 Creatinine 1.0 Creat Clearance w eGFR > 60 Random Glucose 100 Calcium 8.5 Total Bilirubin 1.2 H D AST 20 ALT 31 Alkaline Phosphatase 51 Total Protein 6.9 Albumin 3.6 Urine Color Yellow Urine Appearance Clear Urine pH 5.0 Ur Specific [place] 1.026 Urine Protein Negative Urine Glucose (UA) Negative Urine Ketones Trace H Urine Blood Negative Urine Nitrite Negative Urine Bilirubin Negative Urine Urobilinogen Negative Ur Leukocyte Esterase Negative RPR Titer 10/29/17 07:00 WBC RBC Hgb Hct MCV MCH MCHC RDW Plt Count MPV Sodium Potassium Chloride Carbon Dioxide Anion Gap BUN Creatinine Creat Clearance w eGFR Random Glucose Calcium Total Bilirubin AST ALT Alkaline Phosphatase Total Protein Albumin Urine Color Urine Appearance Urine pH Ur Specific [place] Urine Protein Urine Glucose (UA) Urine Ketones Urine Blood Urine Nitrite Urine Bilirubin Urine Urobilinogen Ur Leukocyte Esterase RPR Titer Nonreactive macrocytosis Assessment: 10/30/17 09:09 withdrawl sx subsiding, continue detox, will accelearte schedule for regular d/ c in AM. needs to follow up abnormal labwork with PCP when idscharged, patient informed.,
[2017-10-30] MEDS: ELVITEG/COB/EMTRI/TENOF (GENVOYA) TABLET (NF) PO SCH (11:01)
[2017-10-30] MEDS: PRENATAL VITAMINS W/ FOLIC ACID TABLET (FP) PO SCH (11:01)
[2017-10-30] MEDS: chlordiazePOXIDE 5 MG CAPSULE PO SCH ×2 (11:02→18:06)
[2017-10-30] MEDS: NICOTINE 14 MG/24 HOURS TOPICAL PATCH TD SCH (11:03)
[2017-10-30] MEDS: chlordiazePOXIDE HCL 10 MG CAPSULE PO SCH (22:13)
[2017-10-30] MEDS: THIAMINE HCL 100 MG TABLET (FP) PO SCH (22:14)
[2017-10-30] MEDS ORDERED: chlordiazePOXIDE 5 MG CAPSULE PO SCH (23:00)
[2017-10-31] MEDS: chlordiazePOXIDE HCL 10 MG CAPSULE PO SCH (05:00)
[2017-10-31 06:16] VITALS: BP 108/60; PULSE 61; TEMP 97.5
[2017-10-31] MEDS ORDERED: chlordiazePOXIDE HCL 10 MG CAPSULE PO SCH (23:00)
== END 2017-10-31 07:08 | disposition home or self-care (01) | DRG 775 ==
LOC: YASAS 12:00 → Y6N 16:04
PROVIDERS: ADMIT Internal Medicine; ATTEND Internal Medicine
PROC: HZ2ZZZZ Detoxification Services for Substance Abuse Treatment (ICD-10-PCS; principal; 2017-10-28)
DX: F10.230 Alcohol dependence with withdrawal, uncomplicated (principal); F12.20 Cannabis dependence, uncomplicated; F17.213 Nicotine dependence, cigarettes, with withdrawal; Z21 Asymptomatic human immunodeficiency virus [HIV] infection status; D75.89 Other specified diseases of blood and blood-forming organs; Z59.0 Homelessness
CPT/HCPCS: 36415; 80053; 81003; 85027; 86593; 93005; 93010

== ENCOUNTER 2019-04-06 11:23 | Inpatient (IN) | payer OTHER | END 2019-04-07 16:15 | disposition left against medical advice (07) | LOC: YASAS 11:23 → Y6N 14:56 ==